=== PATIENT | male | born 1980 | race Caucasian/White ===

== ENCOUNTER 2024-10-06 13:22 | Outpatient (CLI) | payer BC ==
[2024-10-06 14:05] LABS: #Basophils 0.06 10x3/uL (0.0-0.2); %Basophils 0.7 % (0.0-1.0); %Eosinophils 1.8 % (0.0-10.0); %Lymphocytes 32.6 % (21.0-51.0); %Monocytes 7.9 % (0.0-10.0); %Neutrophils 56.8 % (42.0-75.0); Hematocrit 44.2 % (42.0-52.0); Hemoglobin 14.7 g/dL (14.0-18.0); Mean Corpuscular HGB CONC 33.3 g/dL (32.0-36.0); Mean Corpuscular Hemoglobin 31.1 pg (27.0-31.0); Mean Corpuscular Volume 93.4 fL (78.0-98.0); Mean Platelet Volume 10.1 fL (7.4-10.4); Platelet Count 232 10x3/uL (130-400); RBC Distribution Width 12.5 % (11.5-14.5); Red Blood Cell (RBC) Count 4.73 mill/uL (4.70-6.10)
[2024-10-06 14:27] LABS: Anion Gap 13 mmol/L (10-20); BUN (Urea Nitrogen) 6 mg/dL (8.9-20.6); Calc. Creatinine Clearance 0 mL/min (70-130); Calcium 9.2 mg/dL (7.8-10.44); Carbon Dioxide 27 mmol/L (22-29); Chloride 102 mmol/L (98-107); Estimated GFR 111; Glucose 90 mg/dL (70-105); Potassium 3.9 mmol/L (3.5-5.1); Sodium 138 mmol/L (136-145)
== END 2024-10-06 13:23 | disposition home or self-care (01) ==
LOC: LABBT 13:22
PROVIDERS: ATTEND Neurological Surgery
DX: Z01.812 Encounter for preprocedural laboratory examination (principal); M54.12 Radiculopathy, cervical region
CPT/HCPCS: 80048; 85025

== ENCOUNTER 2024-10-10 06:49 | Day surgery (SDC) | payer BC ==
[2024-10-06 13:36] VITALS: BMI 35.2
[2024-10-10] MEDS ORDERED: Midazolam HCl 2 mg/2 ml Vial ONE ×2 (08:20→09:18)
[2024-10-10] MEDS ORDERED: CEFAZOLIN 2 GM VIAL ONE (09:16)
[2024-10-10] MEDS ORDERED: fentaNYL PF 100 MCG/2 ML SYRINGE ONE (09:18)
[2024-10-10] MEDS ORDERED: PROPOFOL 20 ML ONE (09:18)
[2024-10-10] MEDS ORDERED: Rocuronium Bromide 10 MG/ML (10ML VIAL) ONE ×2 (09:18)
[2024-10-10] MEDS ORDERED: Lidocaine 1% PF 5 ML VIAL ONE (09:18)
[2024-10-10] MEDS ORDERED: Mineral Oil Sterile 10 ML VIAL ONE (09:22)
[2024-10-10] MEDS ORDERED: Ketamine In 0.9 % NaCl 50 MG/5 ML SYRINGE ONE (09:39)
[2024-10-10] MEDS ORDERED: Dexamethasone 20 MG/5 ML VIAL ONE (10:00)
[2024-10-10] MEDS ORDERED: NEOSTIGMINE 3 MG/3 ML SYRINGE ONE (10:27)
[2024-10-10] MEDS ORDERED: Glycopyrrolate 0.2 MG/ML 5 ML SYRINGE ONE (10:27)
[2024-10-10] MEDS ORDERED: fentaNYL 50 mcg/mL 1 mL Vial ONE ×3 (10:55→12:44)
[2024-10-10] MEDS ORDERED: HYDROmorphone 0.5 MG/0.5 ML SYRINGE ONE (10:55)
[2024-10-10] MEDS ORDERED: HYDROcodone/Acetaminophen 5/325 mg Tablet ONE (13:24)
== END 2024-10-10 14:02 | disposition home or self-care (01) ==
LOC: SDC 06:49
PROVIDERS: ATTEND Neurological Surgery
PROC: 0RG10A0 Fusion of Cervical Vertebral Joint with Interbody Fusion Device, Anterior Approach, Anterior Column, Open Approach (ICD-10-PCS; principal; 2024-10-10)
PROC: 0RB30ZZ Excision of Cervical Vertebral Disc, Open Approach (ICD-10-PCS; principal; 2024-10-10)
DX: M54.12 Radiculopathy, cervical region (principal); Z90.89 Acquired absence of other organs; Z79.899 Other long term (current) drug therapy
CPT/HCPCS: C1713; J1100; J2250; J2704; J3010; J3490